=== PATIENT | female | born 1970 | race African-American/Black ===

== ENCOUNTER 2024-03-18 15:00 | Outpatient (REF) | payer OTHER, SELFPAY ==
[2024-03-18 16:18] LABS: Erythrocyte Sedimentation Rate 28 MM/HR (0-20)
[2024-03-18 17:01] LABS: T4 Thyroxine 3.4 ug/dL (4.5-12.0)
[2024-03-19 13:43] LABS: Lyme Abs Screen <0.90 index
[2024-03-20 14:09] LABS: Anti Nuclear Antibody Screen NEGATIVE (NEGATIVE)
== END 2024-03-18 15:01 | disposition home or self-care (01) ==
LOC: HO.LAB 15:00
PROVIDERS: PCP Internal Medicine; Visit Provider Psychiatry & Neurology Neurology
DX: G62.9 Polyneuropathy, unspecified (principal); M79.10 Myalgia, unspecified site; M19.90 Unspecified osteoarthritis, unspecified site
CPT/HCPCS: 36415; 82550; 84436; 84443; 85652; 86038; 86617; 86618